=== PATIENT | female | born 1975 | race Two or more races ===

== ENCOUNTER 2017-06-19 08:24 | Emergency (ER) | payer BC ==
[~2017-06-19] VITALS: Ht 167.6 cm; Wt 113.4 kg
[2017-06-19 09:03] VITALS: BP 143/92
[2017-06-19] MEDS ORDERED: LORazepam 2MG/ML-1ML VIAL IM ONE (09:15)
== END 2017-06-19 09:42 | disposition home or self-care (01) ==
LOC: ER 08:24
DX: F41.9 Anxiety disorder, unspecified (principal); Z90.49 Acquired absence of other specified parts of digestive tract
CPT/HCPCS: 96372; 99284; J2060

== ENCOUNTER 2017-06-25 13:57 | Emergency (ER) | payer BC ==
[~2017-06-25] VITALS: Ht 167.6 cm; Wt 113.4 kg
[2017-06-25 17:00] VITALS: BP 145/85
[2017-06-25] MEDS ORDERED: LORazepam 2MG/ML-1ML VIAL IM ONE (19:30)
== END 2017-06-25 20:00 | disposition home or self-care (01) ==
LOC: ER 14:00
DX: F41.0 Panic disorder [episodic paroxysmal anxiety] (principal); Z90.49 Acquired absence of other specified parts of digestive tract; Z98.51 Tubal ligation status
CPT/HCPCS: 96372; 99284; J2060

== ENCOUNTER 2017-09-02 09:52 | Emergency (ER) | payer BC ==
[~2017-09-02] VITALS: Ht 167.6 cm; Wt 108.9 kg
[2017-09-02 10:08] VITALS: BP 144/78
[2017-09-02] MEDS ORDERED: LORazepam 2MG/ML-1ML VIAL IM ONE (10:30)
== END 2017-09-02 10:47 | disposition home or self-care (01) ==
LOC: ER 09:52
DX: F41.9 Anxiety disorder, unspecified (principal)
CPT/HCPCS: 96372; 99284; J2060

== ENCOUNTER 2017-09-24 08:33 | Emergency (ER) | payer BC ==
[~2017-09-24] VITALS: Ht 167.6 cm; Wt 108.9 kg
[2017-09-24 09:33] VITALS: BP 166/92
[2017-09-24] MEDS ORDERED: LORazepam 2MG/ML-1ML VIAL IM ONE (09:45)
== END 2017-09-24 10:03 | disposition home or self-care (01) ==
LOC: ER 08:33
DX: F41.9 Anxiety disorder, unspecified (principal); Z90.49 Acquired absence of other specified parts of digestive tract; Z98.51 Tubal ligation status
CPT/HCPCS: 96372; 99284; J2060

== ENCOUNTER 2017-10-10 07:51 | Emergency (ER) | payer BC ==
[~2017-10-10] VITALS: Ht 167.6 cm; Wt 108.9 kg
[2017-10-10 08:06] VITALS: BP 140/80
== END 2017-10-10 10:35 | disposition home or self-care (01) ==
LOC: ER 07:51
DX: F41.9 Anxiety disorder, unspecified (principal); Z90.49 Acquired absence of other specified parts of digestive tract; Z98.51 Tubal ligation status

== ENCOUNTER 2018-03-03 08:22 | Emergency (ER) | payer BC ==
[~2018-03-03] VITALS: Ht 167.6 cm; Wt 108.9 kg
[2018-03-03 08:26] VITALS: BP 144/91
[2018-03-03] MEDS ORDERED: ALPRAZolam 0.5 MG TAB PO ONE (09:30)
== END 2018-03-03 09:39 | disposition home or self-care (01) ==
LOC: ER 08:22
DX: F41.9 Anxiety disorder, unspecified (principal); Z90.49 Acquired absence of other specified parts of digestive tract; Z98.51 Tubal ligation status

== ENCOUNTER 2018-04-13 12:58 | Emergency (ER) | payer BC ==
[~2018-04-13] VITALS: Ht 167.6 cm; Wt 108.9 kg
[2018-04-13 13:44] LABS: Basophils # (auto) 0.1 uL; Basophils % (auto) 0.6 % (0.0-2.0); Eosinophils # (auto) 0 uL; Eosinophils % (auto) 0.3 % (0.0-7.0); Hematocrit 35.5 % (36.0-46.0); Hemoglobin 11.4 g/dL (12.2-16.2); Lymphocytes # (auto) 2.6 uL; Mean Corpuscular Hemoglobin 27.8 pg (28.0-32.0); Mean Corpuscular Hgb Conc. 32.1 g/dL (32.0-36.0); Mean Corpuscular Volume 86.7 fL (80.0-100.0); Monocytes # (auto) 0.5 uL; Monocytes % (auto) 6.1 % (0.0-12.0); Neutrophils # (auto) 5.5 uL; Platelet Count (auto) 184 10^3/uL (140-450); Red Blood Cells 4.09 10^6/uL (4.0-5.20); Red Cell Distribution Width 15.9 % (11.8-14.3); White Blood Cell 8.7 10^3/uL (4.4-10.8)
[2018-04-13 13:53] LABS: Urine Bacteria NONE SEEN /hpf (None Seen); Urine Blood Negative /uL (Negative); Urine Mucus FEW (None Seen); Urine Specific Gravity 1.018 (1.001-1.035); Urine WBC 3 /hpf (0 - 5)
[2018-04-13 14:09] LABS: Alanine Aminotransferase 23 U/L (13-56); Albumin 3.8 g/dL (3.4-5.0); Alkaline Phosphatase 61 U/L (45-117); Anion Gap 7 (5-15); Aspartate Aminotransferase 13 U/L (15-37); BUN/Creatinine Ratio 8.6; Bilirubin, Total 0.2 mg/dL (0.2-1.0); Blood Urea Nitrogen 5 mg/dL (7-18); Calcium 8.9 mg/dL (8.5-10.1); Carbon Dioxide 24 mmol/L (21-32); Chloride 109 mmol/L (98-107); GFR African American 147 mL/min; GFR Non-African American 121 mL/min; Glucose 103 mg/dL (74-106); Magnesium 2.5 mg/dL (1.6-2.6); Potassium 3.3 mmol/L (3.5-5.1); Sodium 140 mmol/L (136-145); Total Protein 8.8 g/dL (6.4-8.2)
[2018-04-13] MEDS ORDERED: diphenhdrAMINE HCL 50 MG/1 ML VL IM ONE (15:00)
[2018-04-13] MEDS ORDERED: LORazepam 2MG/ML-1ML VIAL IM ONE (15:15)
[2018-04-13 15:23] VITALS: BP 128/72
== END 2018-04-13 15:55 | disposition home or self-care (01) ==
LOC: ER 12:58
DX: F41.1 Generalized anxiety disorder (principal); E05.90 Thyrotoxicosis, unspecified without thyrotoxic crisis or storm
CPT/HCPCS: 36415; 80053; 81001; 81025; 83735; 84443; 84484; 85025; 93005; 96372; 99285; J2060

== ENCOUNTER 2018-07-02 17:48 | Emergency (ER) | payer BC ==
[~2018-07-02] VITALS: Ht 167.6 cm; Wt 113.4 kg
[2018-07-02 18:07] VITALS: BP 134/77
[2018-07-02] MEDS ORDERED: LORazepam 2MG/ML-1ML VIAL IM ONE (21:15)
== END 2018-07-02 21:55 | disposition home or self-care (01) ==
LOC: ER 17:52
DX: F41.9 Anxiety disorder, unspecified (principal); Z98.51 Tubal ligation status; Z90.49 Acquired absence of other specified parts of digestive tract; Z76.0 Encounter for issue of repeat prescription
CPT/HCPCS: 96372; 99283; J2060

== ENCOUNTER 2018-09-27 18:47 | Emergency (ER) | payer BC ==
[~2018-09-27] VITALS: Ht 167.6 cm; Wt 113.4 kg
[2018-09-27 18:53] VITALS: BP 149/89
[2018-09-27] MEDS ORDERED: LORazepam 0.5 MG TAB PO ONE (19:30)
== END 2018-09-27 20:06 | disposition home or self-care (01) ==
LOC: ER 18:47
DX: F41.1 Generalized anxiety disorder (principal); F32.9 Major depressive disorder, single episode, unspecified; Z98.51 Tubal ligation status; Z90.49 Acquired absence of other specified parts of digestive tract

== ENCOUNTER 2018-10-08 17:38 | Emergency (ER) | payer BC ==
[~2018-10-08] VITALS: Ht 167.6 cm; Wt 113.4 kg
[2018-10-08 17:47] VITALS: BP 139/65
== END 2018-10-08 22:30 | disposition left against medical advice (07) ==
LOC: ER 17:41
DX: R10.30 Lower abdominal pain, unspecified (principal); Z53.21 Procedure and treatment not carried out due to patient leaving prior to being seen by health care provider

== ENCOUNTER 2018-10-11 13:42 | Emergency (ER) | payer BC ==
[~2018-10-11] VITALS: Ht 167.6 cm; Wt 113.4 kg
[2018-10-11 15:40] LABS: Basophils # (auto) 0 uL; Basophils % (auto) 0.4 % (0.0-2.0); Eosinophils # (auto) 0.1 uL; Eosinophils % (auto) 0.8 % (0.0-7.0); Hematocrit 35.7 % (36.0-46.0); Hemoglobin 11.5 g/dL (12.2-16.2); Lymphocytes # (auto) 2.2 uL; Lymphocytes % (auto) 33.2 % (10.0-50.0); Mean Corpuscular Hemoglobin 29.3 pg (28.0-32.0); Mean Corpuscular Hgb Conc. 32.2 g/dL (32.0-36.0); Mean Corpuscular Volume 90.9 fL (80.0-100.0); Monocytes # (auto) 0.4 uL; Monocytes % (auto) 5.4 % (0.0-12.0); Neutrophils # (auto) 3.9 uL; Neutrophils % (auto) 60.2 % (37.0-80.0); Nucleated Red Blood Cells % 0.1 %; Platelet Count (auto) 183 10^3/uL (140-450); Red Blood Cells 3.92 10^6/uL (4.0-5.20); Red Cell Distribution Width 14.8 % (11.8-14.3); White Blood Cell 6.6 10^3/uL (4.4-10.8)
[2018-10-11 15:46] LABS: Urine Bacteria FEW /hpf (None Seen); Urine Blood 3+ /uL (Negative); Urine Specific Gravity 1.005 (1.001-1.035); Urine WBC 7 /hpf (0 - 5)
[2018-10-11 15:55] LABS: Albumin 3.5 g/dL (3.4-5.0); BUN/Creatinine Ratio 6.2; Calcium 8.5 mg/dL (8.5-10.1); Potassium 3.7 mmol/L (3.5-5.1)
[2018-10-11 15:58] LABS: Bilirubin, Total 0.2 mg/dL (0.2-1.0); Total Protein 8.4 g/dL (6.4-8.2)
[2018-10-11 17:18] VITALS: BP 137/79
== END 2018-10-11 17:37 | disposition home or self-care (01) ==
LOC: ER 13:42
CPT/HCPCS: 36415; 74176; 80053; 81001; 81025; 82150; 83690; 85025

== ENCOUNTER 2018-10-25 09:16 | Emergency (ER) | payer BC ==
[~2018-10-25] VITALS: Ht 167.6 cm; Wt 113.4 kg
[2018-10-25 09:36] VITALS: BP 130/76
[2018-10-25] MEDS ORDERED: KETOROLAC TROMETH 60MG/2ML VIAL IM ONE (10:30)
== END 2018-10-25 10:47 | disposition home or self-care (01) ==
LOC: ER 09:16
DX: K04.7 Periapical abscess without sinus (principal)
CPT/HCPCS: 96372; 99283; J1885

== ENCOUNTER 2019-01-14 16:25 | Emergency (ER) | payer BC ==
[~2019-01-14] VITALS: Ht 167.6 cm; Wt 108.9 kg
[2019-01-14 18:30] VITALS: BP 131/82
[2019-01-14] MEDS ORDERED: LORazepam 2MG/ML-1ML VIAL IM ONE (19:15)
== END 2019-01-14 20:20 | disposition home or self-care (01) ==
LOC: ER 16:28
DX: F41.0 Panic disorder [episodic paroxysmal anxiety] (principal); F32.9 Major depressive disorder, single episode, unspecified; Z90.49 Acquired absence of other specified parts of digestive tract; Z98.51 Tubal ligation status; Z88.6 Allergy status to analgesic agent
CPT/HCPCS: 93005; 96372; 99284; J2060

== ENCOUNTER 2019-09-29 13:08 | Emergency (ER) | payer BC ==
[~2019-09-29] VITALS: Ht 167.6 cm; Wt 113.4 kg
[2019-09-29] MEDS ORDERED: SODIUM CHLORIDE 0.9% 1,000 ML IV ONE ×2 (14:38)
[2019-09-29] MEDS ORDERED: KETOROLAC TROMETH 30 MG/ML 1ML VIAL IV ONE (14:45)
[2019-09-29 15:00] LABS: Basophils # (auto) 0.1 uL; Basophils % (auto) 0.6 % (0.0-2.0); Eosinophils # (auto) 0 uL; Eosinophils % (auto) 0.1 % (0.0-7.0); Hematocrit 36.2 % (36.0-46.0); Hemoglobin 11.9 g/dL (12.2-16.2); Lymphocytes # (auto) 2.9 uL; Lymphocytes % (auto) 31.5 % (10.0-50.0); Mean Corpuscular Hemoglobin 29.6 pg (28.0-32.0); Mean Corpuscular Hgb Conc. 32.8 g/dL (32.0-36.0); Mean Corpuscular Volume 90.1 fL (80.0-100.0); Monocytes # (auto) 0.9 uL; Monocytes % (auto) 9.5 % (0.0-12.0); Neutrophils # (auto) 5.3 uL; Neutrophils % (auto) 58.3 % (37.0-80.0); Platelet Count (auto) 194 10^3/uL (140-450); Red Blood Cells 4.02 10^6/uL (4.0-5.20); Red Cell Distribution Width 15.3 % (11.8-14.3); White Blood Cell 9.1 10^3/uL (4.4-10.8)
[2019-09-29 15:16] LABS: Urine Bacteria FEW /hpf (None Seen); Urine Blood Negative /uL (Negative); Urine Mucus FEW (None Seen); Urine WBC 1 /hpf (0 - 5)
[2019-09-29 15:20] LABS: Albumin 3.7 g/dL (3.4-5.0); BUN/Creatinine Ratio 14.8; Calcium 9.3 mg/dL (8.5-10.1); Potassium 3.7 mmol/L (3.5-5.1)
[2019-09-29 15:28] LABS: Bilirubin, Total 0.2 mg/dL (0.2-1.0); Total Protein 9.3 g/dL (6.4-8.2)
[2019-09-29 15:44] VITALS: BP 133/86
== END 2019-09-29 17:17 | disposition home or self-care (01) ==
LOC: ER 13:08
DX: N39.0 Urinary tract infection, site not specified (principal); Z88.8 Allergy status to other drugs, medicaments and biological substances
CPT/HCPCS: 36415; 74176; 80053; 81001; 85025; 96374; 99284; J1885

== ENCOUNTER 2020-07-16 16:26 | Emergency (ER) | payer BC ==
[~2020-07-16] VITALS: Ht 167.6 cm; Wt 114.3 kg
[2020-07-16 16:35] VITALS: BP 136/85
[2020-07-16] MEDS ORDERED: cefTRIAXone SOD 1,000 MG VL IM ONE (17:00)
[2020-07-16] MEDS ORDERED: KETOROLAC TROMETH 60MG/2ML VIAL IM ONE (17:00)
== END 2020-07-16 17:23 | disposition home or self-care (01) ==
LOC: ER 16:26
DX: K04.7 Periapical abscess without sinus (principal); Z90.49 Acquired absence of other specified parts of digestive tract
CPT/HCPCS: 96372; 99284; J0696; J1885

== ENCOUNTER 2021-12-21 17:51 | Emergency (ER) | payer BC ==
[~2021-12-21] VITALS: Ht 167.6 cm; Wt 115.7 kg
[2021-12-21 21:33] VITALS: BP 140/68
[2021-12-21] MEDS ORDERED: HYDR-4902 PO (22:11)
[2021-12-21 22:43] LABS: Urine Bacteria FEW /hpf (None Seen); Urine Blood Negative /uL (Negative); Urine Mucus FEW (None Seen); Urine Specific Gravity 1.026 (1.001-1.035); Urine WBC 2 /hpf (0 - 5)
[2021-12-21] MEDS ORDERED: HYDROcodone-ACET 10/325MG TAB PO ONE (22:45)
== END 2021-12-21 22:50 | disposition home or self-care (01) ==
LOC: ER 17:51
DX: M79.18 Myalgia, other site (principal); Z90.49 Acquired absence of other specified parts of digestive tract; Z98.51 Tubal ligation status; Z87.442 Personal history of urinary calculi; Z88.6 Allergy status to analgesic agent
CPT/HCPCS: 74176; 81001

== ENCOUNTER 2024-06-22 00:30 | Emergency (ER) | payer BC ==
[~2024-06-22] VITALS: Ht 167.6 cm; Wt 124.1 kg
[~2024-06-22 00:30] MED LIST: HYDR-4902 PO
[2024-06-22 00:38] VITALS: BP 130/73; PULSE 110; RESP 18; O2SAT 97
[2024-06-22 00:53] LABS: Basophils # (auto) 0 10 ^3/uL (0-0.2); Basophils % (auto) 0.5 % (0.0-2.0); Eosinophils # (auto) 0.1 10 ^3/uL (0-0.8); Eosinophils % (auto) 2.2 % (0.0-7.0); Hematocrit 34.7 % (36.0-46.0); Hemoglobin 12.1 g/dL (12.2-16.2); Lymphocytes # (auto) 3.3 10 ^3/uL (0.4-5.4); Lymphocytes % (auto) 52.3 % (10.0-50.0); Mean Corpuscular Hemoglobin 33.8 pg (28.0-32.0); Mean Corpuscular Volume 96.5 fL (80.0-100.0); Monocytes # (auto) 0.5 10 ^3/uL (0-1.3); Monocytes % (auto) 7.5 % (0.0-12.0); Neutrophils # (auto) 2.3 10 ^3/uL (1.6-8.6); Neutrophils % (auto) 37.5 % (37.0-80.0); Nucleated Red Blood Cells % 0.1 %; Platelet Count (auto) 128 10^3/uL (140-450); Red Cell Distribution Width 13.1 % (11.8-14.3); White Blood Cell 6.2 10^3/uL (4.4-10.8)
[2024-06-22 01:05] LABS: Chloride 108 mmol/L (98-107); Potassium 3.3 mmol/L (3.5-5.1); Sodium 141 mmol/L (136-145)
[2024-06-22 01:06] LABS: Anion Gap 6 (5-15); Calcium 9.6 mg/dL (8.7-10.4); Carbon Dioxide 27 mmol/L (20-30)
[2024-06-22 01:11] LABS: BUN/Creatinine Ratio 9.1 (10.0-20.0); Blood Urea Nitrogen 7 mg/dL (9-23); Glucose 131 mg/dL (74-106)
[2024-06-22] MEDS: NITROGLYCERIN 0.4 MG SL TAB SL ONE (02:04)
[2024-06-22] MEDS: ASPirin 325 MG TAB PO ONE (02:04)
[2024-06-22] MEDS: POTASSIUM EFFERVESENT TAB 25 MEQ PO ONE (03:00)
== END 2024-06-22 03:43 | disposition home or self-care (01) ==
LOC: ER 00:30
DX: R07.89 Other chest pain (principal); E87.6 Hypokalemia; F41.9 Anxiety disorder, unspecified; F32.A Depression, unspecified; Z90.49 Acquired absence of other specified parts of digestive tract; Z98.890 Other specified postprocedural states; Z88.8 Allergy status to other drugs, medicaments and biological substances
CPT/HCPCS: 36415; 80048; 84484; 85025; 93005

== ENCOUNTER 2024-12-15 12:55 | Emergency (ER) | payer BC ==
[~2024-12-15] VITALS: Ht 167.6 cm; Wt 118.5 kg
[2024-12-15 13:37] VITALS: BP 147/89; PULSE 105; RESP 16; O2SAT 100
--- NOTE | 2024-12-15 13:46 | ECG ---
[facility] Test Date: 2024-12-15 Test Time: 13:37:16 Pat Name: EMILI HELMS Department: ER Room: Gender: F Bundle Shaker: STACIA : 1975 Requested By: TESHA HEMPHILL Order Number: [id number] Reading MD: Measurements Intervals [place] Rate: 105 P: 14 [place]: 175 QRS: -14 QRSD: 85 T: 23 QT: 323 QTc: 427 Interpretive Statements Sinus tachycardia Probable left atrial enlargement Left ventricular hypertrophy Please click the below link to view image of tracing.
--- NOTE | 2024-12-15 14:25 | ED.PDOC ---
History of Present Illness HPI Comments 49 year old female presents to the ED with a chief complain of chest pain onset 2 days. Patient states she was seen at urgent care 1 week ago, prescribed Amoxicillin for dental infection. Patient began experiencing chest pain as well as headache 2 days ago, is feeling anxious due to pain. She took Motrin 800 mg PO this morning with no improvement of symptoms. PMHx anxiety, depression. Denies shortness of breath, dizziness, blurry vision, nausea, vomiting, diarrhea, abdominal pain, dysuria. No other symptoms or modifying factors present at this time. Chief Complaint: Headache Time Seen by MD: 14:15 Primary Care Provider: unknown Reviewed Notes: Medications, Allergies Allergies: Coded Allergies: Tramadol (Verified Allergy, Severe, 10/11/18) Home Meds Active Scripts Hydrocodone-Acetaminophen (Hydrocodone Bitartrate/AC 5-325 mg) 1 Tab Tab, 1 TAB PO Q8HP for 5 Days, #15 TAB Prov:YAKELIN VILLALOBOS MD 12/21/21 Information Source: Patient Mode of Arrival: Ambulatory Severity: Moderate Timing: Days Duration: Since onset Prehospital treatment: Pain Meds Past Medical History PAST MEDICAL HISTORY: Anxiety, Depression, Kidney Stones Surgical History: Cholecystectomy, , Tubal 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: 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 History Family History Family History: Family hx of Cancer Social History Smoker: Non-Smoker Alcohol: Denies ETOH Use Drugs: Marijuana Lives In: Home Constitutional: denies: chills, diaphoresis, fatigue, fever, malaise, sweats, weakness, others EENTM: denies: blurred vision, double vision, ear bleeding, ear discharge, ear drainage, ear pain, ear ringing, eye pain, eye redness, hearing loss, mouth pain, mouth swelling, nasal discharge, nose bleeding, nose congestion, nose pain, photophobia, tearing, throat pain, throat swelling, voice changes, others Respiratory: denies: cough, hemoptysis, orthopnea, SOB at rest, shortness of breath, SOB with excertion, stridor, wheezing, others Cardiovascular: reports: chest pain; denies: dizzy spells, diaphoresis, Dyspnea on exertion, edema, irregular heart beat, left arm pain, lightheadedness, palpitations, PND, syncope, others Gastrointestinal: denies: abdomen distended, abdominal pain, blood streaked bowels, constipated, diarrhea, dysphagia, difficulty swallowing, hematemesis, melena, nausea, poor appetite, poor fluid intake, rectal bleeding, rectal pain, vomiting, others Genitourinary: denies: abnormal vagina bleeding, burning, dyspareunia, dysuria, flank pain, frequency, hematuria, incontinence, pain, , vagina discharge, urgency, others Neurological: reports: headache; denies: dizziness, fainting, left sided numbness, left sided weakness, numbness, paresthesia, pre-existing deficit, right sided numbness, right sided weakness, seizure, speech problems, tingling, tremors, weakness, others Musculoskeletal: denies: back pain, gout, joint pain, joint swelling, muscle pain, muscle stiffness, neck pain, others Integumetry: denies: bruises, change in color, change in hair/nails, dryness, laceration, lesions, lumps, rash, wounds, others Allergic/Immunocompromised: denies: Difficulty Healing, Frequent Infections, Hives, Itching, others Hematologic/Lymphatic: denies: anemia, blood clots, easy bleeding, easy bruising, swollen glands, others Endocrine: denies: excessive hunger, excessive sweating, excessive thirst, excessive urination, flushing, intolerance to cold, intolerance to heat, unexplained weight gain, unexplained weight loss, others Psychiatric: denies: anxiety, bipolar disorder, depression, hopeless, panic disorder, schizophrenia, sleepless, suicidal, others All Other Systems: Reviewed and Negative Physical Exam General Appearance: Moderate Distress, Normal HEENT: Normal ENT Inspection, Pharynx Normal, TMs Normal Neck: Full Range of Motion, Non-Tender, Normal, Normal Inspection Respiratory: Chest Non-Tender, Lungs Clear, No Accessory Muscle Use, No Respiratory Distress, Normal Breath Sounds Cardiovascular: No Edema, No JVD, No Murmur, No Gallop, Normal Peripheral Pulses, Regular Rate/Rhythm Breast Exam: Deferred Gastrointestinal: No Organomegaly, Non Tender, No Pulsatile Mass, Normal Bowel Sounds, Soft Genitalia: Deferred Pelvic: Deferred Rectal: Deferred Extremities: No calf tenderness, Normal capillary refill, Normal inspection, Normal range of motion, Non-tender, No pedal edema Musculoskeletal : Apperance: Normal Neurologic: Alert, head operator II-XII nml as Tested, No Motor Deficits, Normal Affect, Normal Mood, No Sensory Deficits Cerebellar Function: Normal Reflexes: Normal Skin: Dry, Normal Color, Warm Peripheral Pulses: 3+ Radial (R), 3+ Radial (L) Lymphatic: No Adenopathy Was a procedure done? Was a procedure done?: No Differential Dx Considerations may include: Anemia Electrolyte imbalance X-Ray, Labs, Meds, VS Vital Signs Date Time Temp Pulse Resp B/P (MAP) Pulse Ox O2 Delivery O2 Flow Rate FiO2 12/15/24 13:37 98.1 108 16 147/89 (108) 100 12/15/24 13:37 105 Patient alert. Complaining of chest pain. She is anxious. Vitals stable. She does have dental caries. Bad hygiene. Currently on amoxicillin. EKG reviewed does not show any acute changes. On clinical examination heart rate within normal limits. Saturation pristine on room air. No leg swelling. No calf tenderness. She was given Ativan. Explained to the patient. Was told to follow up with her primary care physician. Was told to come back if there is any problem. Time of 1ST Reevaluation: 14:45 Reevaluation 1ST: Unchanged Patient Education/Counseling: Diagnosis, Treatment, Prognosis Family Education/Counseling: No Family Present Departure 1 Departure Time of Disposition: 15:00 Impression: Primary Impression: Dental infection Additional Impressions: Generalized anxiety disorder with panic attacks Musculoskeletal chest pain Disposition: HOME / SELF CARE / HOMELESS Condition: Good Discharged With: Self Critical Care Note Critical Care Time?: No Stability Stability form required: No Heart Score Heart Score: Heart Score Response (Comments) Value History Slightly Suspicious 0 EKG Normal 0 Age 45-64 1 Risk Factors No known risk factors 0 Troponin Normal limit 0 Total 1 I personally scribed for TESHA HEMPHILL MD ([email or web address]) on 12/15/24 at 14:25. El ectronically submitted by Ya Linn ([email or web address]). I personally scribed for TESHA HEMPHILL MD ([email or web address]) on 12/15/24 at 14:29. El ectronically submitted by Ya Linn ([email or web address]). I personally scribed for TESHA HEMPHILL MD ([email or web address]) on 12/15/24 at 14:30. El ectronically submitted by Ya Linn ([email or web address]). TESHA HEMPHILL MD Dec 15, 2024 14:25
[2024-12-15] MEDS ORDERED: LORazepam 0.5 MG TAB PO ONE (15:15)
[2024-12-15] MEDS ORDERED: ASPirin 325 MG TAB PO ONE (15:15)
== END 2024-12-15 15:41 | disposition left against medical advice (07) ==
LOC: ER 12:55
DX: K04.7 Periapical abscess without sinus (principal); R07.89 Other chest pain; F41.0 Panic disorder [episodic paroxysmal anxiety]; F41.1 Generalized anxiety disorder; F41.9 Anxiety disorder, unspecified; F32.A Depression, unspecified; Z90.49 Acquired absence of other specified parts of digestive tract; Z98.51 Tubal ligation status; Z98.890 Other specified postprocedural states; Z88.5 Allergy status to narcotic agent
CPT/HCPCS: 93005

== ENCOUNTER 2025-06-23 14:34 | Emergency (ER) | payer BC ==
[~2025-06-23] VITALS: Ht 167.6 cm; Wt 118.6 kg
--- NOTE | 2025-06-23 14:42 | ECG ---
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
--- NOTE | 2025-06-23 15:06 | ED.PDOC ---
HPI Comments This is a 50-year-old female with past medical history of anxiety came to the hospital due to chest pain since 1 week. Pain is localized at the left sternal border, unprovoked, radiating to the right shoulder, 6/10 in intensity, heaviness in nature with no clear exacerbating or relieving factor. She also reports of mild nausea and headache. She denies shortness of breath, fever, vomiting, sweating or palpitation. EKG upon arrival to ER, shows normal sinus rhythm with no significant ST or T- wave changes. Social history: Denies smoking or any other drug use. 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: No 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 History Family History Family History: Family hx of Cancer Social History Smoker: Non-Smoker Alcohol: Denies ETOH Use Drugs: Marijuana Lives In: Home Physical Exam General Appearance: No Apparent Distress, Normal HEENT: Normal ENT Inspection, Pharynx Normal, TMs Normal Neck: Full Range of Motion, Non-Tender, Normal, Normal Inspection Respiratory: Chest Non-Tender, Lungs Clear, No Accessory Muscle Use, No Respiratory Distress, Normal Breath Sounds Cardiovascular: No Edema, No JVD, No Murmur, No Gallop, Normal Peripheral Pulses, Regular Rate/Rhythm Breast Exam: Deferred Gastrointestinal: No Organomegaly, Non Tender, No Pulsatile Mass, Normal Bowel Sounds, Soft Genitalia: Deferred Pelvic: Deferred Rectal: Deferred Extremities: No calf tenderness, Normal capillary refill, Normal inspection, Normal range of motion, Non-tender, No pedal edema Musculoskeletal : Apperance: Normal Neurologic: 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 Was a procedure done?: No CP Differential Dx Differential Diagnosis: Electrolyte Disorder Differential Diagnosis: Angina, Chest Wall Pain, Cholelithiasis, Costochondritis, Gastritis, Pericarditis X-Ray, Labs, Meds, VS Vital Signs Date Time Temp Pulse Resp B/P (MAP) Pulse Ox O2 Delivery O2 Flow Rate FiO2 06/23/25 18:06 68 18 100 Room Air 06/23/25 18:06 68 18 136/59 (84) 100 06/23/25 15:56 Room Air* 0 21 06/23/25 15:54 78 14 154/74 06/23/25 15:38 73 06/23/25 15:28 98.8 79 14 151/81 (104) 97 98.8 06/23/25 14:39 83 06/23/25 14:38 98.9 81 19 140/69 99 98.9 Lab Test 06/23/25 17:53 06/23/25 15:00 06/23/25 14:42 Range/Units Troponin I High Sensitivity Pending < 3 L < 3 L </=34 ng/L White Blood Count 6.2 4.4-10.8 10^3/uL Red Blood Count 3.84 L 4.0-5.20 10^6/uL Hemoglobin 12.6 12.2-16.2 g/dL Hematocrit 36.7 36.0-46.0 % Mean Corpuscular Volume 95.5 80.0-100.0 fL Mean Corpuscular Hemoglobin 32.9 H 28.0-32.0 pg Mean Corpuscular Hemoglobin Concent 34.4 32.0-36.0 g/dL Red Cell Distribution Width 13.2 11.8-14.3 % Platelet Count 147 140-450 10^3/uL Mean Platelet Volume 8.7 6.9-10.8 fL Neutrophils (%) (Auto) 47.4 37.0-80.0 % Lymphocytes (%) (Auto) 43.8 10.0-50.0 % Monocytes (%) (Auto) 7.3 0.0-12.0 % Eosinophils (%) (Auto) 1.1 0.0-7.0 % Basophils (%) (Auto) 0.4 0.0-2.0 % Neutrophils # (Auto) 2.9 1.6-8.6 10 ^3/uL Lymphocytes # (Auto) 2.7 0.4-5.4 10 ^3/uL Monocytes # (Auto) 0.5 0-1.3 10 ^3/uL Eosinophils # (Auto) 0.1 0-0.8 10 ^3/uL Basophils # (Auto) 0 0-0.2 10 ^3/uL Nucleated Red Blood Cells 0.1 % D-Dimer, Quantitative < 0.19 0.0-0.49 mg/L FEU Sodium Level 141 136-145 mmol/L Potassium Level 3.3 L 3.5-5.1 mmol/L Chloride Level 106 98-107 mmol/L Carbon Dioxide Level 27 20-31 mmol/L Anion Gap 8 5-15 Blood Urea Nitrogen 7 L 9-23 mg/dL Creatinine 0.75 0.550-1.02 mg/dL Glomerular Filtration Rate Calc 98 >90 mL/min BUN/Creatinine Ratio 9.3 L 10.0-20.0 Serum Glucose 118 H 74-106 mg/dL Calcium Level 9.5 8.7-10.4 mg/dL Magnesium Level 2.0 1.6-2.6 mg/dL Total Bilirubin 0.3 0.2-1.0 mg/dL Aspartate Amino Transferase (AST) 19 13-40 U/L Alanine Aminotransferase (ALT) 17 7-40 U/L Alkaline Phosphatase 64 46-116 U/L Total Protein 8.6 H 5.7-8.2 g/dL Albumin 4.7 3.2-4.8 g/dL Current Medications Medications (Trade) Dose Ordered Sig/Karen Route Start Time Stop Time Status Last Admin Morphine Sulfate 2 mg ONCE ONCE IV 06/23/25 15:00 06/23/25 15:33 DC 06/23/25 15:54 Aspirin 81 mg ONCE ONCE PO 06/23/25 15:00 06/23/25 15:32 DC 06/23/25 15:54 Atorvastatin Calcium (Lipitor) 80 mg ONCE ONCE PO 06/23/25 15:00 06/23/25 15:32 DC 06/23/25 15:54 Time of 1ST Reevaluation: 18:43 Reevaluation 1ST: Improved Patient Education/Counseling: Diagnosis, Treatment, Prognosis, Need For Follow Up Family Education/Counseling: No Family Present Comments Patient came to the hospital due to chest pain. Patient has history of anxiety. Patient was vitally stable. EKG performed, showed normal sinus rhythm with no significant ST or T-wave change. Serial trop I is Check, within normal limits. Lab exam CBC and CMP checked. CMP showed hypokalemia at 3.3, potassium given to the patient. Patient was given atorvastatin aspirin and morphine. On subsequent checkup, patient was feeling better and had no active complaint. Patient was discharged home, recommended to follow up with the PCP and possible cardiology evaluation. SEPSIS Sepsis Screen Date sepsis recognized/suspect: Jun 23, 2025 Time Sepsis recognized/suspect: 1435 Recent Procedure: No On Antibiotic Therapy: No Respiratory Rate >20: No Heart Rate >90: No Temp<36 C (96.8 F) or >38.3 C: No SBP <90 or MAP <65 mmHG: No New Acute Mental Status Change: No Is the patient on CPAP, BIPAP,: No Physician Orders Electrocardigram (06/23/25 17:40) Troponin-I Hs (06/23/25 17:44) Urinalysis (06/23/25 14:45) Drug Screen (06/23/25 14:51) Vital Signs Date Time Temp Pulse Resp B/P (MAP) Pulse Ox O2 Delivery O2 Flow Rate FiO2 06/23/25 18:06 68 18 100 Room Air 06/23/25 18:06 68 18 136/59 (84) 100 06/23/25 15:56 Room Air* 0 21 06/23/25 15:54 78 14 154/74 06/23/25 15:38 73 06/23/25 15:28 98.8 79 14 151/81 (104) 97 98.8 06/23/25 14:39 83 06/23/25 14:38 98.9 81 19 140/69 99 98.9 Laboratory Tests Test 06/23/25 14:42 White Blood Count 6.2 10^3/uL (4.4-10.8) Medications Medications Dose Ordered Sig/Karen Route Start Time Stop Time Status Last Admin Dose Admin Aspirin 81 mg ONCE ONCE PO 06/23/25 15:00 06/23/25 15:32 DC 06/23/25 15:54 Atorvastatin Calcium 80 mg ONCE ONCE PO 06/23/25 15:00 06/23/25 15:32 DC 06/23/25 15:54 Morphine Sulfate 2 mg ONCE ONCE IV 06/23/25 15:00 06/23/25 15:33 DC 06/23/25 15:54 Departure 1 Departure Time of Disposition: 18:45 Impression: Primary Impression: Costochondritis Additional Impression: Musculoskeletal chest pain Disposition: 01 HOME / SELF CARE / HOMELESS Condition: Good Critical Care Note Critical Care Time?: No Stability Stability form required: No Heart Score Heart Score: Heart Score Response (Comments) Value History N/A 0 EKG N/A 0 Age N/A 0 Risk Factors N/A 0 Troponin N/A 0 Total 0 KEV DAI Jun 23, 2025 15:06
[2025-06-23 15:28] VITALS: TEMP 98.8
[2025-06-23 15:34] LABS: Hematocrit 36.7 % (36.0-46.0); Hemoglobin 12.6 g/dL (12.2-16.2); Mean Corpuscular Hemoglobin 32.9 pg (28.0-32.0); Mean Corpuscular Volume 95.5 fL (80.0-100.0); Nucleated Red Blood Cells % 0.1 %
[2025-06-23] MEDS: NITROGLYCERIN 0.4 MG SL TAB SL ONE (15:53)
[2025-06-23] MEDS: ATORVASTATIN 20 MG TAB PO ONE (15:54)
[2025-06-23] MEDS: MORPHINE SULFATE INJ 2 MG/ml SYRG IV ONE (15:54)
[2025-06-23] MEDS: ACETAMINOPHEN 325 MG TAB PO ONE (15:55)
[2025-06-23 16:27] LABS: Alanine Aminotransferase 17 U/L (7-40); Alkaline Phosphatase 64 U/L (46-116); Calcium 9.5 mg/dL (8.7-10.4); Carbon Dioxide 27 mmol/L (20-31); Chloride 106 mmol/L (98-107)
[2025-06-23 16:28] LABS: Albumin 4.7 g/dL (3.2-4.8); Anion Gap 8 (5-15); BUN/Creatinine Ratio 9.3 (10.0-20.0); Bilirubin, Total 0.3 mg/dL (0.2-1.0); Magnesium 2.0 mg/dL (1.6-2.6); Sodium 141 mmol/L (136-145)
[2025-06-23 16:29] LABS: Blood Urea Nitrogen 7 mg/dL (9-23); Glucose 118 mg/dL (74-106); Potassium 3.3 mmol/L (3.5-5.1); Total Protein 8.6 g/dL (5.7-8.2)
--- NOTE | 2025-06-23 17:47 | ECG ---
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
[2025-06-23 18:06] VITALS: BP 136/59; PULSE 68; RESP 18; O2SAT 100
[2025-06-23] MEDS: POTASSIUM CHL 20 Meq TABLET PO ONE (20:45)
== END 2025-06-23 20:45 | disposition home or self-care (01) ==
LOC: ER 14:34
DX: M94.0 Chondrocostal junction syndrome [Tietze] (principal); R07.89 Other chest pain; F12.90 Cannabis use, unspecified, uncomplicated; F41.9 Anxiety disorder, unspecified; F32.A Depression, unspecified; Z79.899 Other long term (current) drug therapy; Z98.51 Tubal ligation status; Z88.5 Allergy status to narcotic agent; Z87.442 Personal history of urinary calculi; Z90.49 Acquired absence of other specified parts of digestive tract
CPT/HCPCS: 36415; 80053; 83735; 84484; 85025; 85379; 93005; 96374; 99285; J2270

== ENCOUNTER 2025-10-06 20:28 | Emergency (ER) | payer BC ==
[~2025-10-06] VITALS: Ht 167.6 cm; Wt 120.0 kg
[2025-10-06 21:09] LABS: Hematocrit 38.3 % (36.0-46.0); Hemoglobin 12.9 g/dL (12.2-16.2); Mean Corpuscular Hemoglobin 32.0 pg (28.0-32.0); Mean Corpuscular Volume 94.9 fL (80.0-100.0); Nucleated Red Blood Cells % 0.1 %
[2025-10-06] MEDS: KETOROLAC TROMETH 30 MG/ML 1ML VIAL IM ONE (21:23)
[2025-10-06] MEDS: ACETAMINOPHEN 500 MG TAB or CAP PO ONE (21:24)
--- NOTE | 2025-10-06 21:26 | DVH ---
CHEST RADIOGRAPH REASON FOR EXAM: CHEST PAIN COMPARISON: None TECHNIQUE: One view of the chest is provided FINDINGS: The cardiomediastinal silhouette is within normal limits for technique. There is no focal airspace disease. There is no significant pleural effusion. No acute bony abnormality is identified. IMPRESSION: No radiographic evidence of acute cardiopulmonary process.
--- NOTE | 2025-10-06 21:29 | ED.PDOC ---
HPI Comments 50 year-old female presents to the ED with a chief complaint of chest discomfort for X1 week. Patient reports chest discomfort is intermittent, radiating to the R upper back and R side, with associated burning sensation. Patient was seen in the ED on 06/23/25 for similar symptoms, and was discharged home with Costochondritis and musculoskeletal chest pain. Patient reports a social Hx of MJ use, and a PMHx of Anxiety, Depression, and Kidney Stones. Patient has no further complaints at this time and otherwise denies symptoms of dizziness, weakness, palpitations, SOB, cough, or N/V. REVIEW OF SYSTEMS: General: No fever, no chills, or fatigue HEENT: No sore throat, no earache, no congestion, no neck pain. Cardiac: + chest pain. No palpitations. Lungs: No shortness of breath, no cough. GI: No nausea, no vomiting, no diarrhea, no constipation, no abdominal pain : No dysuria, frequency, or urgency. No hematuria. Musculoskeletal: No joint pain , no joint swelling, no extremity edema. Skin: No rash, no itching. Neuro: No headache, no dizziness, no weakness (And as sated in HPI) PHYSICAL EXAM: General: Awake, alert and oriented. No acute distress. Skin: Skin in warm, dry and intact. Appropriate color for ethnicity. HEENT: The head is normocephalic and atraumatic. Conjunctivae are clear without exudates or hemorrhage. Sclera is non-icteric. Eyelids are normal in appearance without swelling or lesions. Oral mucosa is pink and moist Neck: The neck is supple with normal range of motion. No JVD. Cardiac: Heart rate and rhythm are normal. No murmurs, gallops, or rubs are auscultated. Respiratory: No signs of respiratory distress. Lung sounds are clear in all lobes bilaterally without rales, rhonchi, or wheezes. Abdominal: Abdomen is soft, non-tender without distention, guarding or rigidity. Bowel sounds are present and normoactive in all four quadrants. Extremities: Lower extremities without edema. Neurological: The patient is awake, alert and oriented to person, place, and time with normal speech. Speech is clear. There is no facial asymmetry. Psychiatric: Appropriate mood and affect. Good judgement and insight. Chief Complaint: Chest Pain Time Seen by MD: 21:03 Primary Care Provider: unknown Reviewed Notes: Medications, Allergies Allergies: Coded Allergies: Tramadol (Verified Allergy, Severe, 10/11/18) Home Meds Active Scripts Hydrocodone-Acetaminophen (Hydrocodone Bitartrate/AC 5-325 mg) 1 Tab Tab, 1 TAB PO Q8HP for 5 Days, #15 TAB Prov:YAKELIN VILLALOBOS MD 12/21/21 Information Source: Patient Mode of Arrival: Ambulatory Severity: Moderate Timing: Weeks Duration: Since onset Radiation: Back Past Medical History PAST MEDICAL HISTORY: Anxiety, Depression, Kidney Stones Surgical History: Cholecystectomy, , Tubal Ligation [employer] History: No Pertinent [employer] History Family History Family History: Family hx of Cancer Social History Smoker: Non-Smoker Alcohol: Denies ETOH Use Drugs: Marijuana Lives In: Home EKG EKG : Pulse Rate (adult): 76 [place]: Normal Cardiac Rhythm: NSR Block: None Hypertrophy: None ST: Normal Was a procedure done? Was a procedure done?: No CP Differential Dx Differential Diagnosis: A-fib, A-Flutter, Angina, Anxiety / Panic Attack Differential Diagnosis: HTN Essential Differential Diagnosis: Chest Wall Pain, Gastritis, Pneumonia X-Ray, Labs, Meds, VS Vital Signs Date Time Temp Pulse Resp B/P (MAP) Pulse Ox O2 Delivery O2 Flow Rate FiO2 10/06/25 21:35 69 10/06/25 21:29 76 10/06/25 21:18 Room Air* 0 21 10/06/25 20:39 76 10/06/25 20:34 97.1 89 18 155/97 96 97.1 Lab Test 10/06/25 21:51 10/06/25 20:56 Range/Units Troponin I High Sensitivity < 3 L < 3 L </=34 ng/L White Blood Count 8.1 4.4-10.8 10^3/uL Red Blood Count 4.03 4.0-5.20 10^6/uL Hemoglobin 12.9 12.2-16.2 g/dL Hematocrit 38.3 36.0-46.0 % Mean Corpuscular Volume 94.9 80.0-100.0 fL Mean Corpuscular Hemoglobin 32.0 28.0-32.0 pg Mean Corpuscular Hemoglobin Concent 33.7 32.0-36.0 g/dL Red Cell Distribution Width 12.8 11.8-14.3 % Platelet Count 155 140-450 10^3/uL Mean Platelet Volume 8.5 6.9-10.8 fL Neutrophils (%) (Auto) 62.0 37.0-80.0 % Lymphocytes (%) (Auto) 30.9 10.0-50.0 % Monocytes (%) (Auto) 5.6 0.0-12.0 % Eosinophils (%) (Auto) 1.0 0.0-7.0 % Basophils (%) (Auto) 0.5 0.0-2.0 % Neutrophils # (Auto) 5.0 1.6-8.6 10 ^3/uL Lymphocytes # (Auto) 2.5 0.4-5.4 10 ^3/uL Monocytes # (Auto) 0.5 0-1.3 10 ^3/uL Eosinophils # (Auto) 0.1 0-0.8 10 ^3/uL Basophils # (Auto) 0 0-0.2 10 ^3/uL Nucleated Red Blood Cells 0.1 % Sodium Level 141 136-145 mmol/L Potassium Level 3.5 3.5-5.1 mmol/L Chloride Level 107 98-107 mmol/L Carbon Dioxide Level 27 20-31 mmol/L Anion Gap 7 5-15 Blood Urea Nitrogen 5 L 9-23 mg/dL Creatinine 0.67 0.550-1.02 mg/dL Glomerular Filtration Rate Calc 107 >90 mL/min BUN/Creatinine Ratio 7.5 L 10.0-20.0 Serum Glucose 143 H 74-106 mg/dL Calcium Level 9.6 8.7-10.4 mg/dL Current Medications Medications (Trade) Dose Ordered Sig/Karen Route Start Time Stop Time Status Last Admin Aspirin 324 mg ONCE ONCE PO 10/06/25 21:15 10/06/25 21:16 DC 10/06/25 21:23 Acetaminophen (Tylenol Tablet Or Capsule) 1,000 mg ONCE ONCE PO 10/06/25 21:15 10/06/25 21:16 DC 10/06/25 21:24 Ketorolac Tromethamine (Toradol Injection) 30 mg ONCE ONCE IM 10/06/25 21:15 10/06/25 21:16 DC 10/06/25 21:[address] [address] Ph: [phone] DIAGNOSTIC IMAGING Diagnostic Imaging Report : [id number] Signed PATIENT: EMILI HELMSACCT: [id number] UNIT: [id number] : 1975 LOC: ER ROOM / BED: / AGE / SEX: 50 / F ADM STATUS: REG ER SERVICE 40 ORDERING PHYSICIAN: NATALIE PETERSEN MD PROCEDURE(s): CXRP - CHEST PORTABLE REASON: CHEST PAIN ORDER NUMBER(s): [id number], ACCESSION NUMBER(s): [id number] CHEST RADIOGRAPH REASON FOR EXAM: CHEST PAIN COMPARISON: None TECHNIQUE: One view of the chest is provided FINDINGS: The cardiomediastinal silhouette is within normal limits for technique. There is no focal airspace disease. There is no significant pleural effusion. No acute bony abnormality is identified. IMPRESSION: No radiographic evidence of acute cardiopulmonary process. Time of 1ST Reevaluation: 21:54 Reevaluation 1ST: Unchanged Patient Education/Counseling: Diagnosis, Treatment, Need For Follow Up Family Education/Counseling: No Family Present SEPSIS Sepsis Screen Date sepsis recognized/suspect: Oct 06, 2025 Time Sepsis recognized/suspect: 2033 Recent Procedure: No On Antibiotic Therapy: No Respiratory Rate >20: No Heart Rate >90: No Temp<36 C (96.8 F) or >38.3 C: No SBP <90 or MAP <65 mmHG: No New Acute Mental Status Change: No Is the patient on CPAP, BIPAP,: No Physician Orders Chest Portable (10/06/25 20:41) Urinalysis (10/06/25 20:41) Troponin-I Hs (10/06/25 23:41) Electrocardigram (10/06/25 21:41) Electrocardigram (10/06/25 23:41) Vital Signs Date Time Temp Pulse Resp B/P (MAP) Pulse Ox O2 Delivery O2 Flow Rate FiO2 10/06/25 21:35 69 10/06/25 21:29 76 10/06/25 21:18 Room Air* 0 21 10/06/25 20:39 76 10/06/25 20:34 97.1 89 18 155/97 96 97.1 Laboratory Tests Test 12/23/25 20:56 White Blood Count 8.1 10^3/uL (4.4-10.8) Medications Medications Dose Ordered Sig/Karen Route Start Time Stop Time Status Last Admin Dose Admin Acetaminophen 1,000 mg ONCE ONCE PO 10/06/25 21:15 10/06/25 21:16 DC 10/06/25 21:24 Aspirin 324 mg ONCE ONCE PO 10/06/25 21:15 10/06/25 21:16 DC 10/06/25 21:23 Ketorolac Tromethamine 30 mg ONCE ONCE IM 10/06/25 21:15 10/06/25 21:16 DC 10/06/25 21:23 Departure 1 Departure Time of Disposition: 22:41 Impression: Primary Impression: Chest pain Disposition: HOME / SELF CARE / HOMELESS Condition: Stable Additional Instructions: ED DISCHARGE INSTRUCTIONS Instructions: Please read all instructions provided in this packet carefully. Although you have been discharged from the Emergency Department, this does not mean that you have a "clean bill of health". No definitive diagnosis for your symptoms has been made today. It is possible that you are in the process of developing a serious illness. This is why you must return to the ED without fail if any new or worsening symptoms (especially if your symptoms include chest pain, trouble breathing, abdominal pain, fever, headache, confusion, trouble seeing, or trouble walking) It is also very important that you see a primary care provider (PCP) within the next 3-5 days to follow up. If you are unable to get an appointment, return to the ED for re-evaluation. CHEST PAIN EDUCATION There are many things that can cause chest pain. Some are not serious and will get better on their own in a few days. But some kinds of chest pain need more testing and treatment. Your doctor may have recommended a follow-up visit in the next few days. If you are not getting better, you may need more tests or treatment. Even though your doctor has released you, you still need to watch for any problems. The doctor carefully checked you, but sometimes problems can develop later. If you have new symptoms or if your symptoms do not get better, get medical care right away. If you have worse or different chest pain or pressure that lasts more than 5 minutes or you passed out (lost consciousness), call 911 or seek other emergency help right away. A medical visit is only one step in your treatment. Even if you feel better, you still need to do what your doctor recommends, such as going to all suggested follow-up appointments and taking medicines exactly as directed. This will help you recover and help prevent future problems. How can you care for yourself at home? Rest until you feel better. Take your medicine exactly as prescribed. Call your doctor if you think you are having a problem with your medicine. Do not drive after taking a prescription pain medicine. When should you call for help? Call 911 if: You passed out (lost consciousness). You have severe difficulty breathing. You have symptoms of a heart attack. These may include: Chest pain or pressure, or a strange feeling in your chest. Sweating. Shortness of breath. Nausea or vomiting. Pain, pressure, or a strange feeling in your back, neck, jaw, or upper belly or in one or both shoulders or arms. Lightheadedness or sudden weakness. A fast or irregular heartbeat. After you call 911, the profiling machine setup operator may tell you to chew 1 adult-strength or 2 to 4 low-dose aspirin. Wait for an ambulance. Do not try to drive yourself. Call your doctor now or seek immediate medical care if: You have any trouble breathing. You have new or different chest pain. You are dizzy or lightheaded, or you feel like you may faint. Watch closely for changes in your health, and be sure to contact your doctor if you do not get better as expected. Current as of: May 14, 2024 Author: [employer] Staff? Critical Care Note Critical Care Time?: No Stability Stability form required: No Heart Score Heart Score: Heart Score Response (Comments) Value History N/A 0 EKG Normal 0 Age 45-64 1 Risk Factors No known risk factors 0 Troponin Normal limit 0 Total 1 I personally scribed for NATALIE PETERSEN MD ([employer]) on 10/06/25 at 21:29. Electronically submitted by Ladan Koroma (TSB). I personally scribed for NATALIE PETERSEN MD ([employer]rone[employer]) on 10/06/25 at 21:30. Electronically submitted by Ladan Koroma (TSB). NATAILE PETERSEN MD Oct 06, 2025 21:29
--- NOTE | 2025-10-06 21:36 | ECG ---
Test Date: 2025-10-06 Test Time: 21:35:37 Pat Name: EMILI HELMS Department: ED Room: Gender: F Care Worker: DAXA : 1975 Requested By: NATALIE PETERSEN Order Number: [id number] Reading MD: Esteban Dubon Measurements Intervals [place] Rate: 69 P: 30 [place]: 193 QRS: 43 QRSD: 102 T: 25 QT: 387 QTc: 415 Interpretive Statements Sinus rhythm Electronically Signed On 10-09-2025 10:30:36 PST by Esteban Dubon Please click the below link to view image of tracing.
[2025-10-06 21:43] LABS: Chloride 107 mmol/L (98-107); Potassium 3.5 mmol/L (3.5-5.1); Sodium 141 mmol/L (136-145)
[2025-10-06 21:44] LABS: Anion Gap 7 (5-15); Calcium 9.6 mg/dL (8.7-10.4); Carbon Dioxide 27 mmol/L (20-31)
[2025-10-06 21:45] VITALS: BP 124/76; PULSE 93; RESP 16; TEMP 98.2; O2SAT 98
[2025-10-06 21:49] LABS: BUN/Creatinine Ratio 7.5 (10.0-20.0)
[2025-10-06 21:54] LABS: Blood Urea Nitrogen 5 mg/dL (9-23); Glucose 143 mg/dL (74-106)
--- NOTE | 2025-10-07 03:56 | ECG ---
[facility] Test Date: 2025-10-06 Test Time: 20:39:58 Pat Name: EMILI HELMS Department: ED Room: Gender: F Case Filler: RADHA : 1975 Requested By: NATALIE PETERSEN Order Number: [id number] Reading MD: Esteban Dubon Measurements Intervals [place] Rate: 76 P: 32 [place]: 174 QRS: 34 QRSD: 99 T: 20 QT: 378 QTc: 426 Interpretive Statements Sinus rhythm Electronically Signed On 10-09-2025 10:30:32 PST by Esteban Dubon Please click the below link to view image of tracing.
== END 2025-10-06 23:00 | disposition home or self-care (01) ==
LOC: ER 20:28
DX: R07.89 Other chest pain (principal); F41.9 Anxiety disorder, unspecified; F32.A Depression, unspecified; Z90.49 Acquired absence of other specified parts of digestive tract; Z98.51 Tubal ligation status; Z87.442 Personal history of urinary calculi; Z88.5 Allergy status to narcotic agent
CPT/HCPCS: 36415; 71045; 80048; 84484; 85025; 93005; 96372; 99285; J1885